=== PATIENT | female | born 1950 | race Caucasian/White ===

== ENCOUNTER → 2023-08-27 09:25 | Outpatient (REF) | payer OTHER, SELFPAY ==
[2023-08-27 10:48] LABS: Blood Urea Nitrogen 17 mg/dl (7-17); Calcium 9.6 mg/dl (8.4-10.2); Carbon Dioxide 27 mmol/L (22-30); Chloride 105 mmol/L (98-107); Glucose 91 mg/dl (70-99); Potassium 4.3 mmol/L (3.5-5.1); Sodium 138 mmol/L (135-145); eGFR > 60.00
[2023-08-27 10:49] LABS: % Basophils 1.4 % (0-2); % Eosinophils 3.2 % (0-6); % Immature Granulocytes 0.3 % (0-0.5); % Lymphocytes 16.9 % (20.5-51.1); % Monocytes 8.4 % (1.7-9.3); % Neutrophils 69.8 % (42.2-75.2); Absolute Basophils 0.1 10^3/uL (0-0.2); Absolute Eosinophils 0.2 10^3/uL (0-0.7); Absolute Lymphocytes 1.2 10^3/uL (1.2-3.4); Absolute Monocytes 0.6 10^3/uL (0.1-0.6); Hematocrit 45.2 % (37.0-47.0); Hemoglobin 15.5 g/dL (12.0-16.0); Mean Corp Hgb Conc. 34.3 g/dL (33.0-37.0); Mean Corpuscular Hgb 32.4 pg (27.0-31.0); Mean Corpuscular Volume 94.6 fL (81.0-99.0); Mean Platelet Volume 9.9 fL (7.4-10.4); Nucleated Red Blood Cells % 0 %; Platelet Count 237 10^3/uL (130-400); Red Blood Cell Count 4.78 10^6/uL (4.20-5.40); Red Cell Dist. Width 12.9 % (11.5-14.5); White Blood Cell Count 7.2 10^3/uL (4.8-10.8)
== END ==
LOC: RCS 09:25
PROVIDERS: ATTENDING PHYSICIAN Orthopaedic Surgery; FAMILY PHYSICIAN Family Medicine
DX: M16.11 Unilateral primary osteoarthritis, right hip (principal); M17.11 Unilateral primary osteoarthritis, right knee
CPT/HCPCS: 36415; 80048; 85025; 93005

== ENCOUNTER → 2023-09-24 11:14 | Outpatient (REF) | payer OTHER, SELFPAY | LOC: RAD 11:14 | PROVIDERS: ATTENDING PHYSICIAN Physician Assistant | DX: M54.50 Low back pain, unspecified (principal) | CPT/HCPCS: 72110 ==

== ENCOUNTER → 2024-01-28 11:22 | Outpatient (REF) | payer OTHER, SELFPAY | LOC: RCS 11:22 | PROVIDERS: ATTENDING PHYSICIAN Internal Medicine Cardiovascular Disease; FAMILY PHYSICIAN Family Medicine | DX: R01.1 Cardiac murmur, unspecified (principal) | CPT/HCPCS: 93306 ==

== ENCOUNTER 2024-12-03 06:19 | Day surgery (SDC) | payer OTHER, SELFPAY | END 2024-12-03 09:33 | disposition home or self-care (01) | LOC: GI 06:19 | PROVIDERS: ATTENDING PHYSICIAN Internal Medicine Gastroenterology | DX: Z12.11 Encounter for screening for malignant neoplasm of colon (principal); K57.30 Diverticulosis of large intestine without perforation or abscess without bleeding; K64.8 Other hemorrhoids; D12.0 Benign neoplasm of cecum; D12.3 Benign neoplasm of transverse colon; D12.4 Benign neoplasm of descending colon; D12.5 Benign neoplasm of sigmoid colon; Z86.0101 Personal history of adenomatous and serrated colon polyps | CPT/HCPCS: 45385; 88305 ==

== ENCOUNTER 2025-02-07 11:18 | Emergency (ER) | payer OTHER, SELFPAY ==
[2025-02-07 11:22] VITALS: BP 142/86
--- NOTE | 2025-02-07 12:50 | ED.GENMED ---
History of Present Illness
General
Chief Complaint: Fall
Source: patient
Time Seen by Provider: 02/07/25 11:52
History of Present Illness
History of Present Illness:
74-year-old female presenting to the emergency department for evaluation after she accidentally tripped and fell yesterday evening around 9:30 PM resulting in striking the back of her head onto the ground and injuring her left hip/pelvis. She
states since the fall she has intermittently lightheaded and notes that while she is able to ambulate walking up stairs does cause her pain and discomfort to the left hip. There was no reported loss of consciousness, vomiting, vision changes, focal
weakness or numbness or any other injuries sustained. Patient denies any use of anticoagulants. She does note about 5 or 10 years ago having a head injury that may have resulted in concussion.
Past History
Past History
ED Past Medical History: Other (osteoporosis)
ED Past Surgical History: Orthopedic and Tonsilectomy
Social History
Tobacco: Non-smoker
Alcohol: None
Drug: None
Personal:
Living: with family
Review of Systems
Review of Systems
All Other Systems: ROS reviewed and negative except as documented in HPI and ROS
Phy Exam
Physical Exam
Physical Exam:
GENERAL: Alert , in no apparent distress
EYE: conjunctiva clear, pupils 4mm bilateral
Head: Normocephalic atraumatic
NECK: Supple, no midline tenderness
ENT: mmm.
LUNGS: no acute respiratory distress
NEUROLOGICAL: Alert and oriented
SKIN: Warm and dry, skin intact.
MUSCULOSKELETAL: well perfused. No focal areas of ttp. No abnormal ecchymosis or breaks in skin. No obvious edema. FROM with minimal pain of the LLE
PSYCH: Normal and appropriate interaction.
Scores
Heart Failure Risk
Heart Failure Risk Score: Not Applicable
Heart Score for Chest Pain Patients
STEMI patient?: Not applicable
Withdrawal Assessment of Alcohol
Withdrawal Assessment Completed?: Not applicable
Course
Orders/Labs/Results
Orders:
Orders
02/07/25 11:52
CT Head W/o Iv Contrast Urgent
Comment:
Reason For Exam: fall, head injury
02/07/25 12:40
CR Hip - LT w/wo Pel 2-3 Vw* Urgent
Comment:
Reason For Exam: left hip/pelvis pain from fall
Include a pelvis x-ray?: Yes
Vital Signs
Initial and Last Documented VS:
Initial Vital Signs
Temp Pulse Resp BP Pulse Ox
97.8 F 76 16 142/86 98
02/07/25 11:22 02/07/25 11:22 02/07/25 11:22 02/07/25 11:22 02/07/25 11:22
Last Documented Vital Signs
Temp Pulse Resp BP Pulse Ox
97.8 F 76 16 142/86 98
02/07/25 11:22 02/07/25 11:22 02/07/25 11:22 02/07/25 11:22 02/07/25 12:55
MDM/Problems Addressed
Differential Diagnosis Includes:
Contusion
Concussion
Intracranial bleeding
Pelvic Fracture
Femur Fracture
Bursitis
Pelvic contusion
MDM/Problems Addressed:
74-year-old female presenting to the ER for evaluation after an accidental fall yesterday evening resulting in mild head injury and left hip pain. Patient is in no acute distress and hemodynamically stable. CT of the head ordered as well as x-ray
of the hip/pelvis. Patient declining anything for pain. Disposition pending.
*Radiology
Radiology exam reviewed: preliminary read by ED provider (No acute fracture) and radiology read reviewed
*Pulse Oximetry
SaO2: 98
Oxygen Mode of Delivery: Room air
Patient hypoxic: no
*Critical Care Note
Total Time (30-74mins, 75-104mins- exclusive of procedures): Not Applicable
Patient Management
Escalation/DeEscalation of care consider admission/obs:
Patient's imaging is unremarkable. She was able to ambulate steadily. Motrin/Tylenol as needed for pain. Follow-up with primary care provider. Aware of return precautions to the ED
ED Attending Note
-
Portions of this chart may have been created with voice recognition software.� Occasional wrong word or��sound alike� substitutions may have occurred due to the inherent limitations of voice recognition software.
Discharge Plan
Departure
Patient Disposition: Home (Routine Discharge)
Date of Disposition: 02/07/25
Time of Disposition: 14:59
Patient with high blood pressure during this ER visit?: Yes
Discharge Problem:
Accidental fall, Head injury, Hip pain, left
Instructions: Head Injury in Adults (DC)
Prescriptions:
No Action
multivitamin 1 EACH tablet
1 tab PO DAILY
ascorbic acid (vitamin C) [Vitamin C] 500 MG tablet
1,000 mg PO DAILY
calcium carb and citrat-mag ox [CalMag Thins] 1 EACH tablet
2 ea PO DAILY
Patient Comments:
1000mg
cholecalciferol (vitamin D3) 125 MCG tablet,disintegrating
5,000 unit PO DAILY
oxycodone 5 MG tablet
5 mg PO Q6HPRN PRN (Reason: moderate-severe pain) Qty: 30 0RF
Rx Instructions:
1 tab moderate pain or 2 if pain severe
Dx total joint replacement
ongoing therapy
celecoxib 200 MG capsule
200 mg PO DAILY Qty: 30 0RF
Rx Instructions:
Take with food.
Do not take within 2 hours of Aspirin post-surgery.
famotidine 20 MG tablet
20 mg PO HS Qty: 30 0RF
Rx Instructions:
Take nightly while on Celebrex.
ondansetron HCl 4 MG tablet
4 mg PO Q6HPRN PRN (Reason: nausea) Qty: 20 0RF
Rx Instructions:
Take 1/2 hour prior to Oxycodone if experiencing recurrent nausea.
mupirocin 1 APPLIC ointment
1 applic intranasal BID Qty: 1 0RF
acetaminophen 500 MG tablet
1,000 mg PO Q6H Qty: 60 0RF
Rx Instructions:
Do NOT exceed >4000 mg daily.
Aspirin 325 MG Tablet
325 mg PO DAILY Qty: 28 0RF
Rx Instructions:
Take daily x4 weeks for blood clot prevention.
docusate sodium 100 MG capsule
100 mg PO BID Qty: 30 0RF
sennosides [senna] 8.6 MG capsule
17.2 mg PO BID Qty: 30 0RF
magnesium hydroxide 30 ML suspension
30 ml PO HSPRN PRN (Reason: constipation) Qty: 7 0RF
Rx Instructions:
Take as needed for constipation unrelieved by Colace and Senna.
vitamin E (dl, acetate) 400 UNITS capsule
400 units PO DAILY Qty: 0 0RF
Rx Instructions:
Resume in 1 week.
omega 0-wow-jkw-fish oil [Fish Oil] 1 EACH capsule
1 ea PO DAILY Qty: 0 0RF
Rx Instructions:
Resume in 1 week.
mjsuvbpm-qytac-ocb 2-C-D3-suzanne [Jnipqctt-Lfvagg-RKA with vit D] 1 EACH tablet
1 ea PO DAILY Qty: 0 0RF
Rx Instructions:
Resume in 1 week.
Relief Factor/Fish Oil/Turmeri
4 cap PO DAILY Qty: 0 0RF
Rx Instructions:
Resume in 1 week.
Referrals:
Roselia Cummings MD [Family Provider, Family Practice]
Interventions
Interventions:
*Risk Screen - Suicide Last Done: 02/07/25 11:22
*General Assessment Last Done: 02/07/25 11:31
*Neglect/Abuse Screening Last Done: 02/07/25 11:22
*ED- Fall Risk Assessment Last Done: 02/07/25 11:31
*Nursing Disposition Last Done: 02/07/25 15:05
ED-Musculoskeletal Assessment Last Done: 02/07/25 11:31
ED- Neurological Assessment Last Done: 02/07/25 11:31
ED-Skin Assessment Last Done: 02/07/25 11:31
Discharge Date and Time
Discharge Date/Time: 02/07/25 15:06
Print Language: SLOVAK
== END 2025-02-07 15:06 | disposition home or self-care (01) ==
LOC: EMR 11:18
PROVIDERS: EMERGENCY PHYSICIAN Emergency Medicine; FAMILY PHYSICIAN Family Medicine
DX: S09.90XA Unspecified injury of head, initial encounter (principal); M25.552 Pain in left hip; R42 Dizziness and giddiness; W01.0XXA Fall on same level from slipping, tripping and stumbling without subsequent striking against object, initial encounter; R03.0 Elevated blood-pressure reading, without diagnosis of hypertension; M81.0 Age-related osteoporosis without current pathological fracture
CPT/HCPCS: 99284; 70450; 73502

== ENCOUNTER 2025-04-11 06:11 | Day surgery (SDC) | payer OTHER, SELFPAY ==
--- NOTE | 2025-03-23 13:54 | CM ---
CM reviewed medical records. CM left message for orthopedic [place].
--- NOTE | 2025-03-28 10:35 | VNURNOTE ---
Patient is scheduled for an elective L TREVON on 04/11 - she is a same day patient with Dr Quezada. Spoke with patient prior to surgery. Introduced role of [facility] Liaison. Patient lives with her spouse.
She has a rolling walker
She had VN services after prior hip surgeries and was same day surgery.
Discussed [facility] joint protocol and post surgical plans.
Reviewed that she will have VN services initially and will then start outpatient PT.
Patient selects [facility] for home care needs. She has yet to schedule out pt PT. She plans on going to [facility] outpt PT - date TBD. Advised pt to schedule first outpt appt or [facility] same week of surgery.
Patient is in agreement with plan and states that her spouse will be home with her. Advised to bring RW with her day of surgery. Referral placed in [facility].
Plan: [facility] per [facility] joint protocol 04/11 then outpt PT TBD
[2025-03-30 14:02] VITALS: BMI 26.9
[2025-03-30 14:29] VITALS: BMI 26.9
[2025-03-30 14:46] LABS: Hematocrit 43.6 % (37.0-47.0); Hemoglobin 14.5 g/dL (12.0-16.0); Mean Corp Hgb Conc. 33.3 g/dL (33.0-37.0); Mean Corpuscular Volume 96.0 fL (81.0-99.0); Platelet Count 268 10^3/uL (130-400); Red Cell Dist. Width 13.0 % (11.5-14.5)
[2025-03-30 15:04] LABS: ALT (SGPT) 16 U/L (0-35); AST (SGOT) 21 U/L (14-36); Albumin 4.5 g/dl (3.5-5.0); Alkaline Phosphatase 81 U/L (38-126); Blood Urea Nitrogen 20 mg/dl (7-17); Calcium 9.8 mg/dl (8.4-10.2); Carbon Dioxide 29 mmol/L (22-30); Chloride 102 mmol/L (98-107); Estimated Creatinine Clearance 66 ml/min; Glucose 97 mg/dl (70-99); Potassium 4.4 mmol/L (3.5-5.1); Sodium 136 mmol/L (135-145); Total Protein 7.5 g/dl (6.3-8.2); eGFR > 60.00
[2025-03-31 08:48] LABS: Glycohemoglobin (HgbA1c) 5.1 % (4.0-5.9)
[2025-04-11] VITALS (14 sets, daily range): BP systolic 82–129; BP diastolic 57–81
[2025-04-11] MEDS: CELEBREX 200 MG PO (07:37)
[2025-04-11] MEDS: TYLENOL 650 MG PO ×2 (07:37→12:12)
[2025-04-11] MEDS: NORMOSOL-R/PLASMALYTE-A 1000 IV ×2 (07:52→11:05)
[2025-04-11] MEDS: ROXICODONE 5 MG PO (10:53)
[2025-04-11] MEDS: ANCEF 5 IV (12:30)
== END 2025-04-11 13:20 | disposition home health service (06) ==
LOC: SDS 06:11
PROVIDERS: ATTENDING PHYSICIAN Specialist; FAMILY PHYSICIAN Family Medicine; OTHER PHYSICIAN Physician Assistant
DX: M16.12 Unilateral primary osteoarthritis, left hip (principal); Z96.641 Presence of right artificial hip joint
CPT/HCPCS: 27130; 36415; 73502; 80053; 83036; 85027; 87070; 93005; 97162; C1713; C1776